=== PATIENT | female | born 1985 | race American Indian/Alaskan Native ===

== ENCOUNTER 2021-11-03 17:33 | Observation (INO) | payer SELFPAY ==
[2021-11-03 20:15] LABS: Alanine Aminotransferase 6 units/L (7-56); Albumin 4.4 g/dL (3.9-5); Blood Urea Nitrogen 12 mg/dL (7-17); Calcium 9.3 mg/dL (8.4-10.2); Hemolysis Index 1
[2021-11-03 20:30] LABS: BUN/Creatinine Ratio 17
[2021-11-03 20:37] LABS: Mean Corpuscular HGB Conc 27 % (30-34); Platelet Count 518 K/mm3 (140-440); Red Blood Count 2.41 M/mm3 (3.65-5.03)
[2021-11-03 21:12] LABS: Hematocrit 12.8 % (30.3-42.9); Hemoglobin 3.5 gm/dl (10.1-14.3); Mean Corpuscular Volume 53 fl (79-97); Red Cell Distribution Width 24.9 % (13.2-15.2)
[2021-11-03] MEDS ORDERED: SODIUM CHLORIDE 0.9% 500 ML 500 ML IV ONE (21:38)
[2021-11-03] MEDS ORDERED: SODIUM CHLORIDE 0.9% 1000 ML 1,000 ML IV ONE (21:39)
[2021-11-03] MEDS ORDERED: ONDANSETRON 4 MG/2 ML INJ IV ONE (21:40)
--- NOTE | 2021-11-03 21:46 | Emergency Department Report ---
- General Chief complaint: Weakness Stated complaint: VOMITING, HEADACHE,WEAK Time Seen by Provider: 11/03/21 21:25 Source: patient Mode of arrival: Ambulatory Limitations: No Limitations - History of Present Illness Initial comments: 36 yo F with h/o heavy menstrual bleeding who now present with generalized body weakness associated with nausea and vomiting for the last 2 days. She also reports some dizziness. Pt denies any fever or chills or any other modifying or associated factors. MD Complaint: generalized weakness, lack of energy - Related Data Allergies Allergy/AdvReac Type Severity Reaction Status Date / Time No Known Allergies Allergy Unverified 11/03/21 18:31 ED Review of Systems ROS: Stated complaint: VOMITING, HEADACHE,WEAK Other details as noted in HPI Comment: All other systems reviewed and negative Gastrointestinal: nausea, vomiting. denies: hematemesis, melena ED Past Medical Hx - Past Medical History Additional medical history: ANEMIA - Surgical History Additional Surgical History: D &C ED Physical Exam - General Limitations: No Limitations General appearance: alert, in no apparent distress - Head Head exam: Present: atraumatic, normal inspection - Eye Eye exam: Present: other (conjunctival pallor ) Pupils: Present: normal accommodation - ENT ENT exam: Present: normal exam, normal orophraynx, mucous membranes dry - Neck Neck exam: Present: normal inspection, full ROM. Absent: tenderness - Respiratory Respiratory exam: Present: normal lung sounds bilaterally. Absent: respiratory distress, accessory muscle use - Cardiovascular Cardiovascular Exam: Present: regular rate, normal rhythm, normal heart sounds - GI/Abdominal GI/Abdominal exam: Present: soft, normal bowel sounds. Absent: distended, tenderness - Extremities Exam Extremities exam: Present: normal inspection, normal capillary refill. Absent: tenderness, pedal edema - Back Exam Back exam: Absent: tenderness - Neurological Exam Neurological exam: Present: alert, oriented X3 - Psychiatric Psychiatric exam: Present: normal affect, normal mood - Skin Skin exam: Present: warm, cyanosis, pallor ED Course Vital Signs 11/03/21 11/03/21 11/03/21 18:34 21:26 21:30 Temperature 99.6 F Pulse Rate 93 H 118 H Respiratory 18 20 Rate Blood Pressure 150/80 O2 Sat by Pulse 100 99 Oximetry 11/03/21 11/03/21 11/03/21 21:40 21:50 22:00 Temperature Pulse Rate 94 H 89 82 Respiratory 16 14 13 Rate Blood Pressure 149/88 140/73 140/73 O2 Sat by Pulse 100 94 100 Oximetry 11/03/21 11/03/21 11/03/21 22:10 22:20 22:30 Temperature Pulse Rate 82 75 89 Respiratory 14 18 10 L Rate Blood Pressure 140/73 154/79 154/79 O2 Sat by Pulse 98 82 L Oximetry 11/03/21 11/03/21 11/03/21 22:40 22:50 23:00 Temperature Pulse Rate 86 83 84 Respiratory 11 L 10 L 13 Rate Blood Pressure 154/79 126/83 126/83 O2 Sat by Pulse 100 100 Oximetry 11/03/21 11/03/21 11/03/21 23:10 23:16 23:30 Temperature Pulse Rate 93 H 80 70 Respiratory 15 9 L 15 Rate Blood Pressure 126/73 127/81 140/79 O2 Sat by Pulse 98 98 100 Oximetry 11/03/21 11/03/21 11/03/21 23:40 23:46 23:56 Temperature Pulse Rate 83 71 68 Respiratory 14 17 15 Rate Blood Pressure 121/79 135/82 135/82 O2 Sat by Pulse 79 L 100 100 Oximetry 11/04/21 11/04/21 11/04/21 00:00 00:04 00:16 Temperature Pulse Rate 76 73 83 Respiratory 13 13 10 L Rate Blood Pressure 128/80 138/84 129/84 O2 Sat by Pulse 100 100 100 Oximetry 11/04/21 11/04/21 11/04/21 00:30 00:46 01:00 Temperature Pulse Rate 79 63 74 Respiratory 10 L 13 12 Rate Blood Pressure 142/87 138/96 132/90 O2 Sat by Pulse 97 100 92 Oximetry 11/04/21 11/04/21 11/04/21 01:16 01:30 01:46 Temperature Pulse Rate 69 70 68 Respiratory 7 L 11 L 9 L Rate Blood Pressure 131/82 128/66 134/87 O2 Sat by Pulse 100 96 Oximetry 11/04/21 11/04/21 11/04/21 02:00 02:16 02:30 Temperature Pulse Rate 63 70 84 Respiratory 10 L 16 13 Rate Blood Pressure 156/96 157/102 154/91 O2 Sat by Pulse 100 59 L 97 Oximetry 11/04/21 11/04/21 11/04/21 02:46 03:00 03:16 Temperature Pulse Rate 68 73 71 Respiratory 16 12 14 Rate Blood Pressure 140/86 157/102 154/90 O2 Sat by Pulse 100 100 100 Oximetry 11/04/21 11/04/21 03:30 03:46 Temperature Pulse Rate 77 70 Respiratory 16 11 L Rate Blood Pressure 145/94 151/94 O2 Sat by Pulse 100 100 Oximetry - Consultations Consultation #1: 11/04/21 05:11 Dr Hernandez consulted ED Medical Decision Making - Lab Data Result diagrams: 11/04/21 03:15 11/03/21 19:23 - Medical Decision Making here with generalized muscle weakness and noted with very critically low H&H 3.5/12.8-- with h/o heavy menstrual period-- will go ahead and other 2 units pRBC and transfuse-- will start immediate ivf ns 1L bolus x 1-- Pt H&H repeated after the above transfusion of the initial 2 units and only improved to 5.6 mg/dl -- so likely going to need 2 more units of pRBC-- with this admission is warrantee -- so Dr Hernandez consulted who accept pt for further evaluation and treatment Critical care attestation.: If time is entered above; I have spent that time in minutes in the direct care of this critically ill patient, excluding procedure time. ED Disposition Clinical Impression: Nausea and vomiting in adult, Generalized muscle weakness Anemia Qualifiers: Anemia type: unspecified type Qualified Code(s): D64.9 - Anemia, unspecified Disposition: ADMITTED INPATIENT Is pt being admited?: Yes Does the pt Need Aspirin: No Condition: Stable Time of Disposition: 05:11
[2021-11-03 23:03] LABS: Anisocytosis 2+; Hypochromasia 3+; Platelet Estimate Consistent w Auto; Total Cells Counted 100
[2021-11-04 03:41] LABS: Red Blood Count 2.77 M/mm3 (3.65-5.03)
[2021-11-04 03:42] LABS: Hematocrit 17.7 % (30.3-42.9); Hemoglobin 5.6 gm/dl (10.1-14.3); Mean Corpuscular HGB Conc 32 % (30-34); Mean Corpuscular Volume 64 fl (79-97); Platelet Count 469 K/mm3 (140-440); Red Cell Distribution Width 35.8 % (13.2-15.2)
[2021-11-04] MEDS ORDERED: SODIUM CHLORIDE 0.9% 500 ML 500 ML IV ONE (05:07)
[2021-11-04 05:11] LABS: Anisocytosis 3+; Dimorphic RBC Yes; Eosinophils % (Manual) 0 % (0.0-4.3); Hypochromasia 2+; Platelet Estimate Consistent w Auto; Total Cells Counted 100
[2021-11-04] MEDS ORDERED: MORPHINE 2 MG/1 ML INJ IV PRN (05:11)
[2021-11-04] MEDS ORDERED: ONDANSETRON 4 MG/2 ML INJ IV PRN (05:11)
[2021-11-04] MEDS ORDERED: ACETAMINOPHEN 325 MG TAB PO PRN (05:11)
--- NOTE | 2021-11-04 10:33 | Electrocardiograph Report ---
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
--- NOTE | 2021-11-04 11:00 | Progress Note ---
History Interval history: 36 yo female patient with significant past medical history of menorrhagia with heavy periods presented to the emergency room yesterday with generalized weakness fatigue, dizziness as well as nausea vomiting of 2 days duration Initial work-up is consistent with severe anemia probably due to acute on chronic blood loss Hb was 3.5, typed and crossed and patient received 3 units of PRBC transfusion and this morning hemoglobin improved to 5.6 Hospitalist Physical - Constitutional Vitals: Temp Pulse Resp BP Pulse Ox 98.1 F 74 16 136/83 100 11/04/21 10:00 11/04/21 10:00 11/04/21 10:00 11/04/21 10:00 11/04/21 10:00 Results - Labs CBC & Chem 7: 11/04/21 03:15 11/03/21 19:23 Labs: Laboratory Last Values WBC 8.8 K/mm3 (4.5-11.0) 11/04/21 03:15 RBC 2.77 M/mm3 (3.65-5.03) L 11/04/21 03:15 Hgb 5.6 gm/dl (10.1-14.3) L* 11/04/21 03:15 Hct 17.7 % (30.3-42.9) L* 11/04/21 03:15 MCV 64 fl (79-97) L 11/04/21 03:15 MCH 20 pg (28-32) L 11/04/21 03:15 MCHC 32 % (30-34) 11/04/21 03:15 RDW 35.8 % (13.2-15.2) H 11/04/21 03:15 Plt Count 469 K/mm3 (140-440) H 11/04/21 03:15 Add Manual Diff Complete 11/04/21 03:15 Total Counted 100 11/04/21 03:15 Seg Neuts % (Manual) 74.0 % (40.0-70.0) H 11/04/21 03:15 Band Neutrophils % 0 % 11/04/21 03:15 Lymphocytes % (Manual) 19.0 % (13.4-35.0) 11/04/21 03:15 Reactive Lymphs % (Man) 0 % 11/04/21 03:15 Monocytes % (Manual) 4.0 % (0.0-7.3) 11/04/21 03:15 Eosinophils % (Manual) 0 % (0.0-4.3) 11/04/21 03:15 Basophils % (Manual) 3.0 % (0.0-1.8) H 11/04/21 03:15 Metamyelocytes % 0 % 11/04/21 03:15 Myelocytes % 0 % 11/04/21 03:15 Promyelocytes % 0 % 11/04/21 03:15 Blast Cells % 0 % 11/04/21 03:15 Nucleated RBC % Not Reportable 11/04/21 03:15 Seg Neutrophils # Man 6.5 K/mm3 (1.8-7.7) 11/04/21 03:15 Band Neutrophils # 0.0 K/mm3 11/04/21 03:15 Lymphocytes # (Manual) 1.7 K/mm3 (1.2-5.4) 11/04/21 03:15 Abs React Lymphs (Man) 0.0 K/mm3 11/04/21 03:15 Monocytes # (Manual) 0.4 K/mm3 (0.0-0.8) 11/04/21 03:15 Eosinophils # (Manual) 0.0 K/mm3 (0.0-0.4) 11/04/21 03:15 Basophils # (Manual) 0.3 K/mm3 (0.0-0.1) H 11/04/21 03:15 Metamyelocytes # 0.0 K/mm3 11/04/21 03:15 Myelocytes # 0.0 K/mm3 11/04/21 03:15 Promyelocytes # 0.0 K/mm3 11/04/21 03:15 Blast Cells # 0.0 K/mm3 11/04/21 03:15 WBC Morphology Not Reportable 11/04/21 03:15 Hypersegmented Neuts Not Reportable 11/04/21 03:15 Hyposegmented Neuts Not Reportable 11/04/21 03:15 Hypogranular Neuts Not Reportable 11/04/21 03:15 Smudge Cells Not Reportable 11/04/21 03:15 Toxic Granulation Not Reportable 11/04/21 03:15 Toxic Vacuolation Not Reportable 11/04/21 03:15 Dohle Bodies Not Reportable 11/04/21 03:15 Pelger-Huet Anomaly Not Reportable 11/04/21 03:15 Tino Rods Not Reportable 11/04/21 03:15 Platelet Estimate Consistent w auto 11/04/21 03:15 Clumped Platelets Not Reportable 11/04/21 03:15 Plt Clumps, EDTA Not Reportable 11/04/21 03:15 Large Platelets Not Reportable 11/04/21 03:15 Giant Platelets Not Reportable 11/04/21 03:15 Platelet Satelliting Not Reportable 11/04/21 03:15 Plt Morphology Comment Not Reportable 11/04/21 03:15 RBC Morphology Not Reportable 11/04/21 03:15 Dimorphic RBCs Yes 11/04/21 03:15 Polychromasia Not Reportable 11/04/21 03:15 Hypochromasia 2+ 11/04/21 03:15 Poikilocytosis Not Reportable 11/04/21 03:15 Anisocytosis 3+ 11/04/21 03:15 Microcytosis 2+ 11/04/21 03:15 Macrocytosis Not Reportable 11/04/21 03:15 Spherocytes Not Reportable 11/04/21 03:15 Pappenheimer Bodies Not Reportable 11/04/21 03:15 Sickle Cells Not Reportable 11/04/21 03:15 Target Cells Not Reportable 11/04/21 03:15 Tear Drop Cells Not Reportable 11/04/21 03:15 Ovalocytes Not Reportable 11/04/21 03:15 Helmet Cells Not Reportable 11/04/21 03:15 Davalos-Harrell Bodies Not Reportable 11/04/21 03:15 [place] Rings Not Reportable 11/04/21 03:15 [place] Cells Not Reportable 11/04/21 03:15 Bite Cells Not Reportable 11/04/21 03:15 Crenated Cell Not Reportable 11/04/21 03:15 Elliptocytes Not Reportable 11/04/21 03:15 Acanthocytes (Spur) Not Reportable 11/04/21 03:15 Rouleaux Not Reportable 11/04/21 03:15 Hemoglobin C Crystals Not Reportable 11/04/21 03:15 Schistocytes Not Reportable 11/04/21 03:15 Malaria parasites Not Reportable 11/04/21 03:15 Aiden Bodies Not Reportable 11/04/21 03:15 Hem Pathologist Commnt No 11/04/21 03:15 Sodium 138 mmol/L (137-145) 11/03/21 19:23 Potassium 4.2 mmol/L (3.6-5.0) 11/03/21 19: Chloride 103.3 mmol/L (98-107) 11/03/21 19:23 Carbon Dioxide 21 mmol/L (22-30) L 11/03/21 19: Anion Gap 18 mmol/L 11/03/21 19:23 BUN 12 mg/dL (7-17) 11/03/21 19:23 Creatinine 0.7 mg/dL (0.6-1.2) 11/03/21 19:23 Estimated GFR > 60 ml/min 11/03/21 19:23 BUN/Creatinine Ratio 17 % 11/03/21 19: Glucose 80 mg/dL (65-100) 11/03/21 19: Calcium 9.3 mg/dL (8.4-10.2) 11/03/21 19: Total Bilirubin 0.30 mg/dL (0.1-1.2) 11/03/21 19:23 AST 12 units/L (5-40) 11/03/21 19: ALT 6 units/L (7-56) L 11/03/21 19: Alkaline Phosphatase 55 units/L (35-129) 11/03/21 19: Total Protein 7.2 g/dL (6.3-8.2) 11/03/21 19: Albumin 4.4 g/dL (3.9-5) 11/03/21 19:23 Albumin/Globulin Ratio 1.6 % 11/03/21 19:23 HCG, Quant 1.00 mIU/mL (0-4) 11/04/21 03:15 Blood Type O POSITIVE 11/03/21 19:07 Antibody Screen Negative 11/03/21 19:07 Crossmatch See Detail 11/03/21 19:07 Active Medications - Current Medications Current Medications: Generic Name Dose Route Start Last Admin Trade Name Freq PRN Reason Stop Dose Admin Acetaminophen 650 mg 11/04/21 05:11 Acetaminophen 325 Mg Tab PO Q4H PRN Pain MILD(1-3)/Fever >100.5/[place] Morphine Sulfate 2 mg 11/04/21 05:11 Morphine 2 Mg/1 Ml Inj IV Q4H PRN Pain, Moderate (4-6) Ondansetron HCl 4 mg 11/04/21 05:11 Ondansetron 4 Mg/2 Ml Inj IV Q8H PRN Nausea And Vomiting Sodium Chloride 10 ml 11/04/21 10:00 Sodium Chloride 0.9% 10 Ml Flush Syringe IV BID TABATHA Sodium Chloride 10 ml 11/04/21 05:11 Sodium Chloride 0.9% 10 Ml Flush Syringe IV PRN PRN LINE FLUSH
--- NOTE | 2021-11-04 11:01 | History and Physical Report ---
History of Present Illness Date of examination: 11/04/21 Date of admission: 11/04/21 05:11 Chief complaint: Generalized weakness and fatigue, history of heavy periods History of present illness: 36 yo female patient with significant past medical history of menorrhagia with heavy periods presented to the emergency room yesterday with generalized weakness fatigue, dizziness as well as nausea vomiting of 2 days duration Initial work-up is consistent with severe anemia probably due to acute on chronic blood loss Hb was 3.5, typed and crossed and patient received 3 units of PRBC transfusion and this morning hemoglobin improved to 5.6 Patient is not having active bleeding, never seen a GREEN BUILDING MATERIALS DESIGNER Past History Past Medical History: anemia, other (Menorrhagia) Past Surgical History: No surgical history Social history: denies: smoking, alcohol abuse, prescription drug abuse Family history: no significant family history Medications and Allergies Allergies Allergy/AdvReac Type Severity Reaction Status Date / Time No Known Allergies Allergy Verified 11/04/21 05:17 Home Medications Medication Instructions Recorded Confirmed Last Taken Type Ferrous Sulfate [Feosol 325 MG tab] 325 mg PO BID #60 tablet 11/04/21 Unknown Rx Active Meds: Active Medications Acetaminophen (Acetaminophen 325 Mg Tab) 650 mg PO Q4H PRN PRN Reason: Pain MILD(1-3)/Fever >100.5/[place] Morphine Sulfate (Morphine 2 Mg/1 Ml Inj) 2 mg IV Q4H PRN PRN Reason: Pain, Moderate (4-6) Ondansetron HCl (Ondansetron 4 Mg/2 Ml Inj) 4 mg IV Q8H PRN PRN Reason: Nausea And Vomiting Sodium Chloride (Sodium Chloride 0.9% 10 Ml Flush Syringe) 10 ml IV BID TABATHA Sodium Chloride (Sodium Chloride 0.9% 10 Ml Flush Syringe) 10 ml IV PRN PRN PRN Reason: LINE FLUSH Review of Systems Constitutional: fatigue, weakness, no weight loss, no weight gain Ears, nose, mouth and throat: no nasal congestion, no nasal discharge Cardiovascular: no chest pain, no orthopnea, no palpitations Respiratory: no cough, no shortness of breath Gastrointestinal: no abdominal pain, no nausea, no vomiting Genitourinary Female: menorrhagia, no flank pain, no dysuria, no hematuria Rectal: no pain, no itching Musculoskeletal: no neck pain, no arthritis Integumentary: no rash, no lesions Neurological: no paralysis, no weakness Psychiatric: no anxiety, no depression Endocrine: no polyphagia, no excessive thirst Hematologic/Lymphatic: no easy bruising, no easy bleeding Allergic/Immunologic: no urticaria, no allergic rhinitis Exam - Constitutional Vitals: Temp Pulse Resp BP Pulse Ox 98.1 F 74 16 136/83 100 11/04/21 10:00 11/04/21 10:00 11/04/21 10:00 11/04/21 10:00 11/04/21 10:00 General appearance: Present: no acute distress, well-nourished - EENT Eyes: Present: PERRL, EOM intact - Neck Neck: Present: supple, normal ROM - Respiratory Respiratory effort: normal Respiratory: bilateral: diminished, negative: rales, rhonchi, wheezing - Cardiovascular Rhythm: regular Heart Sounds: Present: S1 & S2 - Extremities Extremities: no ischemia, No edema - Abdominal General gastrointestinal: Present: soft, non-tender, non-distended, normal bowel sounds - Integumentary Integumentary: Present: clear, warm - Musculoskeletal Musculoskeletal: strength equal bilaterally, generalized weakness - Psychiatric Psychiatric: appropriate mood/affect, cooperative - Neurologic Neurologic: moves all extremities Results - Labs CBC & Chem 7: 11/04/21 16:41 11/03/21 19:23 Labs: Abnormal lab results 11/03/21 11/03/21 11/03/21 Range/Units 19:07 19:23 19:23 RBC 2.41 L (3.65-5.03) M/mm3 Hgb 3.5 L* (10.1-14.3) gm/dl Hct 12.8 L* (30.3-42.9) % MCV 53 L (79-97) fl MCH 15 L (28-32) pg MCHC 27 L (30-34) % RDW 24.9 H (13.2-15.2) % Plt Count 518 H (140-440) K/mm3 Seg Neuts % (Manual) 76.0 H (40.0-70.0) % Basophils % (Manual) 4.0 H (0.0-1.8) % Lymphocytes # (Manual) 1.0 L (1.2-5.4) K/mm3 Basophils # (Manual) 0.3 H (0.0-0.1) K/mm3 Carbon Dioxide 21 L (22-30) mmol/L ALT 6 L (7-56) units/L Crossmatch See Detail 11/04/21 Range/Units 03:15 RBC 2.77 L (3.65-5.03) M/mm3 Hgb 5.6 L* (10.1-14.3) gm/dl Hct 17.7 L* (30.3-42.9) % MCV 64 L (79-97) fl MCH 20 L (28-32) pg MCHC (30-34) % RDW 35.8 H (13.2-15.2) % Plt Count 469 H (140-440) K/mm3 Seg Neuts % (Manual) 74.0 H (40.0-70.0) % Basophils % (Manual) 3.0 H (0.0-1.8) % Lymphocytes # (Manual) (1.2-5.4) K/mm3 Basophils # (Manual) 0.3 H (0.0-0.1) K/mm3 Carbon Dioxide (22-30) mmol/L ALT (7-56) units/L Crossmatch Assessment and Plan --Severe acute on chronic blood loss anemia Due to menorrhagia. Type and cross Transfuse 3 units of PRBC Recheck H&H transfuse additional PRBC as needed -- History of menorrhagia Patient has heavy monthly periods for some time Has never seen a upholstery handler Patient strongly advised to see GREEN BUILDING MATERIALS DESIGNER upon discharge for further evaluation management of her menorrhagia --Generalized weakness and fatigue Due to underlying severe anemia -- DVT prophylaxis SCDs SCDs no pharmacologic anticoagulation in view of anemia Closely monitor the patient and adjust management as needed Plan of care reviewed with the patient and her nurse Possible discharge tomorrow or this evening if hemoglobin improves.
[2021-11-04 17:03] LABS: Hematocrit 27.2 % (30.3-42.9); Hemoglobin 8.4 gm/dl (10.1-14.3)
--- NOTE | 2021-11-04 17:51 | Discharge Summary ---
Providers - Providers Date of Admission: 11/04/21 05:11 Date of discharge: 11/04/21 Attending physician: LUZ GROVER Primary care physician: CORONA DE LEÓN Hospitalization Reason for admission: Generalized weakness/severe anemia Condition: Stable Procedures: Total of PRBC transfusion Hospital course: 36-year-old female patient with no significant past medical history except for prolonged periods presented to the emergency room with generalized weakness dizziness and fatigue of 2 to 3 days duration. Patient was examined and evaluated work-up in the ED is consistent with severe anemia with hemoglobin of 3.5 Received 3 units of PRBC transfusion, repeat hemoglobin improved to 5.6 patient received the fourth unit of blood transfusion posttransfusion hemoglobin 8.4. Patient has history of menorrhagia with prolonged periods, currently no vaginal bleeding. Patient was never worked up for anemia along periods Today patient is comfortable no new complaints vital signs stable Physical examination prior to discharge unremarkable Patient strongly advised to see the QUILL PICKING MACHINE OPERATOR within 1 week for further evaluation and management treatment of severe menorrhagia and blood loss Patient verbalized understanding,Advised to follow-up with primary care physician and private QUILL PICKING MACHINE OPERATOR per schedule Patient is hemodynamically and clinically stable at discharge Discharge diagnosis Severe anemia Hb 3.5 on admission s/p 4 units PRBC transfusion Hb 8.4 Acute vs acute on chronic blood loss anemia Status post 4 units PRBC transfusion History of menorrhagia Patient is stable at discharge advised to follow private QUILL PICKING MACHINE OPERATOR for further evaluation management Disposition: 01 HOME / SELF CARE / HOMELESS Final Discharge Diagnosis (Prints w/discharge instructions): Severe anemia. Acute vs acute on chronic blood loss anemia. Status post 4 units PRBC transfusion. History of menorrhagia Time spent for discharge: 35 minutes Core Measure Documentation - Palliative Care Palliative Care/ Comfort Measures: Not Applicable - Core Measures Any of the following diagnoses?: none Exam - Constitutional Vitals: Temp Pulse Resp BP Pulse Ox 97.9 F 77 14 160/88 100 11/04/21 13:00 11/04/21 14:30 11/04/21 14:30 11/04/21 14:30 11/04/21 14:20 General appearance: Present: no acute distress, well-nourished - EENT Eyes: Present: PERRL, EOM intact - Neck Neck: Present: supple, normal ROM - Respiratory Respiratory effort: normal Respiratory: bilateral: diminished, negative: rales, rhonchi, wheezing - Cardiovascular Rhythm: regular Heart Sounds: Present: S1 & S2 - Extremities Extremities: no ischemia, No edema - Abdominal General gastrointestinal: Present: soft, non-tender, non-distended, normal bowel sounds - Integumentary Integumentary: Present: clear, warm - Musculoskeletal Musculoskeletal: strength equal bilaterally, generalized weakness - Psychiatric Psychiatric: appropriate mood/affect, cooperative - Neurologic Neurologic: moves all extremities Plan Activity: no restrictions Diet: regular Additional Instructions: Advised to see private QUILL PICKING MACHINE OPERATOR for further evaluation management of your menorrhagia/heavy periods. If you have worsening symptoms contact MD or go to the nearest emergency room as needed Follow up with: CORONA DE LEÓN MD [Primary Care Provider] - 7 Days EVIN BUCKLEY MD [Staff Physician] - 7 Days Prescriptions: Ferrous Sulfate [Feosol 325 MG tab] 325 mg PO BID #60 tablet
[2021-11-04 18:54] VITALS: BP 146/90
== END 2021-11-04 23:52 | disposition home or self-care (01) ==
LOC: ED 17:33 → INTOOBSV 11-04 05:11 → 4A 11-04 05:11
PROVIDERS: ADMIT Hospitalist; ATTEND Internal Medicine
DX: D62 Acute posthemorrhagic anemia (principal); N92.0 Excessive and frequent menstruation with regular cycle; R53.83 Other fatigue; M62.81 Muscle weakness (generalized); R11.2 Nausea with vomiting, unspecified; Z79.899 Other long term (current) drug therapy
CPT/HCPCS: 36415; 36430; 80053; 84702; 85014; 85018; 85025; 86850; 86900; 86901; 86920; 93005; 96361; 96374; 99284; G0378; J2405; J7030; J7040; P9016; 85007; 99285